=== PATIENT | female | born 1995 | race Caucasian/White ===

== ENCOUNTER 2024-03-19 14:32 | Emergency (ER) | payer OTHER ==
--- NOTE | 2024-03-19 14:50 | ED Physician Documentation ---
PD HPI HEENT - Stated complaint Stated Complaint: LT SIDE HEAD PX - Chief complaint Chief Complaint: Heent - History obtained from History obtained from: Patient - Additional information Additional information: She developed pain and tenderness of Left forehead/shinto area starting yesterday while eating. It is tender to touch. No problems with vision, rash, ear, or URI sx. No fevers. PD PAST MEDICAL HISTORY - Past Medical History Past Medical History: No Other Past Medical History: TMJ - Past Surgical History Past Surgical History: No - Present Medications Home Medications: Ambulatory Orders Medication Instructions Recorded Confirmed No Known Home Medications 03/19/24 03/19/24 - Allergies Allergies/Adverse Reactions: Allergies Allergy/AdvReac Type Severity Reaction Status Date / Time No Known Drug Allergies Allergy Verified 03/19/24 14:42 - Social History Does the pt smoke?: No Smoking Status: Never smoker Does the pt drink ETOH?: No Does the pt have substance abuse?: No - Immunizations Immunizations are current?: Yes - POLST Patient has POLST: No PD ED PE NORMAL - Vitals Vital signs reviewed: Yes - General General: Alert and oriented X 3, No acute distress - HEENT HEENT: PERRL, EOMI, Ears normal, Other (She is tender to the left shinto, above the TMJ. No TTP of TMJ itself and FROM jaw. No shingles rash.) - Neuro Neuro: Alert and oriented X 3, nc manager 2-12 intact Eye Opening: Spontaneous Motor: Obeys Commands Verbal: Oriented GCS Score: 15 Results - Vitals Vitals: Vital Signs - 24 hr 03/19/24 03/19/24 14:39 15:40 Temperature 36.9 C 36.8 C Heart Rate 69 62 Respiratory 18 14 Rate Blood Pressure 118/66 104/56 L O2 Saturation 99 100 Oxygen O2 Source Room air - Labs Labs: Laboratory Tests 03/19/24 03/19/24 03/19/24 14:55 14:55 14:55 WBC 7.3 RBC 4.58 Hgb 12.8 Hct 38.8 MCV 84.7 MCH 27.9 MCHC 33.0 RDW 13.0 Plt Count 284 MPV 9.6 Neut # (Auto) 4.1 Lymph # (Auto) 2.6 [place] # (Auto) 0.5 Eos # (Auto) 0.1 Baso # (Auto) 0.0 Absolute Nucleated RBC 0.00 Nucleated RBC % 0.0 ESR 3 Sodium 136 Potassium 4.0 Chloride 104 Carbon Dioxide 26 Anion Gap 6.0 BUN 16 Creatinine 0.7 Estimated GFR (MDRD) 100 Glucose 117 H Calcium 10.1 Total Bilirubin 0.8 AST 17 ALT 10 Alkaline Phosphatase 74 C-Reactive Protein < 0.5 Total Protein 7.8 Albumin 4.8 Globulin 3.0 Albumin/Globulin Ratio 1.6 PD Medical Decision Making - ED course ED course: She presents with left shinto pain. It could be TMJ which is what she thinks it is but it seems just a little high for that. She is very young for temporal arteritis but this was screened for with ESR and CRP which were negative. Otherwise CBC and CMP were negative. Consideration for early shingles but no rash at this juncture. Vies to follow-up with dentistry. Departure - Departure Disposition: 01 Home, Self Care Clinical Impression: Hindu tenderness Condition: Good Record reviewed to determine appropriate education?: Yes Instructions: ED TMJ Syndrome Comments: You were seen today for pain in the left shinto, it is worse with chewing and you have a history of TMJ. It certainly could be TMJ, but it seemed a little high for that for me, so we did some labs mostly to rule out inflammatory etiologies and these were negative. Your blood sugar was borderline high at 117 and this should be monitored over time by your physician but is not significantly elevated at this point. You should also follow-up with your dentist for further evaluation of potential TMJ. In the interim you can take an NSAID such as ibuprofen or Aleve for the pain. Forms: PCP List Discharge Date/Time: 03/19/24 15:41
[2024-03-19] MEDS: IBUPROFEN 400 MG TABLET PO STA (14:55)
[2024-03-19 15:00] LABS: BASOPHILS % (AUTO) 0.5 %; EOSINOPHILS # (AUTO) 0.1 10^3/uL (0.0-0.7); EOSINOPHILS % (AUTO) 1.2 %; HCT - HEMATOCRIT 38.8 % (37.0-47.0); HGB - HEMOGLOBIN 12.8 g/dL (12.0-16.0); LYMPHOCYTES # (AUTO) 2.6 10^3/uL (1.5-3.5); LYMPHOCYTES % (AUTO) 36.1 %; MEAN CORPUSCULAR HEMOGLOBIN 27.9 pg (27.0-31.0); MEAN CORPUSCULAR VOLUME 84.7 fL (81.0-99.0); MEAN PLATELET VOLUME 9.6 fL (7.9-10.8); MONOCYTES # (AUTO) 0.5 10^3/uL (0.0-1.0); MONOCYTES % (AUTO) 6.2 %; NEUTROPHILS # (AUTO) 4.1 10^3/uL (1.5-6.6); NEUTROPHILS % (AUTO) 55.7 %; PLT - PLATELET COUNT 284 10^3/uL (130-450); RED BLOOD COUNT 4.58 10^6/uL (4.20-5.40); WHITE BLOOD COUNT 7.3 x10^3/uL (4.8-10.8)
[2024-03-19 15:25] LABS: ALBUMIN 4.8 g/dL (3.2-5.5); ALBUMIN/GLOBULIN RATIO 1.6 (1.0-2.2); ALKALINE PHOSPHATASE 74 IU/L (42-121); ALT ALANINE AMINOTRANSFERASE 10 IU/L (10-60); AST ASPARTATE AMINOTRANSFERASE 17 IU/L (10-42); BILIRUBIN,TOTAL 0.8 mg/dL (0.2-1.0); BUN - BLOOD UREA NITROGEN 16 mg/dL (6-20); CALCIUM 10.1 mg/dL (8.5-10.3); CARBON DIOXIDE - CO2 26 mmol/L (21-32); CHLORIDE 104 mmol/L (101-111); CREATININE 0.7 mg/dL (0.6-1.3); CRP - C-REACTIVE PROTEIN < 0.5 mg/dL (<0.5); GFR - MDRD 100 (>89); GLUCOSE 117 mg/dL (74-104); SODIUM 136 mmol/L (135-145); TOTAL PROTEIN 7.8 g/dL (6.4-8.9)
[2024-03-19 15:46] VITALS: BP 104/56; O2SAT 100
== END 2024-03-19 15:41 | disposition home or self-care (01) ==
LOC: ED 14:32
DX: R51.9 Headache, unspecified (principal)
CPT/HCPCS: 36415; 80053; 85025; 85651; 86140; 99283; A9270

== ENCOUNTER 2024-04-21 08:00 | Outpatient (CLI) | payer OTHER ==
[2024-04-21 18:01] LABS: BILIRUBIN,URINE NEGATIVE (NEGATIVE); GLUCOSE, URINE (UA) NEGATIVE (NEGATIVE); KETONES,URINE (UA) 15 mg/dL (NEGATIVE); LEUKOCYTE ESTERASE, URINE NEGATIVE (NEGATIVE); NITRITE,URINE NEGATIVE (NEGATIVE); OCCULT BLOOD,URINE NEGATIVE (NEGATIVE); PROTEIN,URINE NEGATIVE (NEGATIVE); UROBILINOGEN,URINE 0.2 (NORMAL) E.U./dL (NORMAL)
[2024-04-21 18:28] LABS: BACTERIA,URINE Many /HPF (None Seen); CLARITY,URINE CLEAR (CLEAR); MUCUS,URINE Few Strands; RBC,URINE None Seen /HPF (0-5); SQUAMOUS EPITHELIAL CELL,UR MANY Squamous (<= Few); WBC,URINE 0-3 /HPF (0-5)
== END 2024-04-21 23:59 | disposition home or self-care (01) ==
LOC: LAB.WC 08:00
PROVIDERS: ATTEND Obstetrics & Gynecology
DX: Z34.00 Encounter for supervision of normal first pregnancy, unspecified trimester (principal)
CPT/HCPCS: 81001; 87086

== ENCOUNTER 2024-05-05 12:26 | Outpatient (CLI) | payer OTHER ==
--- NOTE | 2024-05-07 18:54 | Ultrasound Report ---
PROCEDURE: OB 1st Trimester INDICATIONS: POSITIVE TEST OUTSIDE/PRIOR DATING DATA: Last menstrual period (LMP): 03/01/2024. LMP-based estimated date of delivery (TULIO): 12/06/2024. First dating scan (date and location): 05/05/2024. Estimated date of delivery (TULIO) from first dating scan: 12/06/2024. TECHNIQUE: Real-time scanning was performed of the fetus and maternal pelvic organs with image docum entation. COMPARISON: None FINDINGS: Heart rate: 176 bpm. Embryo: Angie-rump length measures 2.5 cm corresponding to a 9 week 2 day gestation. Other: No perigestational fluid collection. Measurement variability in dating: +/- 4 weeks by LMP, +/- 7 days by mean sac diameter (use before 6 weeks gestation if crown-rump length not able to be measured), +/- 5 days by crown-rump length (6-12 weeks gestation). Maternal organs: Right-sided corpus luteum cyst IMPRESSION: Single live intrauterine consistent with 9 week 2 day gestation. Reviewed by: Anshul Clement MD on 05/07/2024 5:53 PM CECELIA Approved by: Anshul Clement MD on 05/07/2024 5:53 PM AKLAMAR Station ID: [id number]
== END 2024-05-05 12:27 | disposition home or self-care (01) ==
LOC: DI 12:26
PROVIDERS: ATTEND Obstetrics & Gynecology
DX: Z34.01 Encounter for supervision of normal first pregnancy, first trimester (principal)

== ENCOUNTER 2024-05-20 15:32 | Outpatient (CLI) | payer OTHER ==
[2024-05-20 15:51] LABS: BASOPHILS # (AUTO) 0.1 10^3/uL (0.0-0.1); BASOPHILS % (AUTO) 0.5 %; EOSINOPHILS # (AUTO) 0.1 10^3/uL (0.0-0.7); EOSINOPHILS % (AUTO) 1.1 %; HCT - HEMATOCRIT 34.2 % (37.0-47.0); HGB - HEMOGLOBIN 11.8 g/dL (12.0-16.0); LYMPHOCYTES # (AUTO) 2.4 10^3/uL (1.5-3.5); LYMPHOCYTES % (AUTO) 24.7 %; MEAN CORPUSCULAR HGB CONC 34.5 g/dL (32.0-36.0); MEAN PLATELET VOLUME 9.4 fL (7.9-10.8); MONOCYTES # (AUTO) 0.6 10^3/uL (0.0-1.0); MONOCYTES % (AUTO) 5.8 %; NEUTROPHILS # (AUTO) 6.5 10^3/uL (1.5-6.6); NEUTROPHILS % (AUTO) 67.7 %; PLT - PLATELET COUNT 280 10^3/uL (130-450); RED BLOOD COUNT 4.07 10^6/uL (4.20-5.40); RED CELL DISTRIBUTION WIDTH 12.9 % (12.0-15.0); WHITE BLOOD COUNT 9.7 x10^3/uL (4.8-10.8)
[2024-05-20 16:05] LABS: ALBUMIN 4.3 g/dL (3.2-5.5); ALBUMIN/GLOBULIN RATIO 1.7 (1.0-2.2); BILIRUBIN,TOTAL 0.7 mg/dL (0.2-1.0); CALCIUM 9.2 mg/dL (8.5-10.3); CREATININE 0.5 mg/dL (0.6-1.3); POTASSIUM 3.6 mmol/L (3.5-4.5); TOTAL PROTEIN 6.8 g/dL (6.4-8.9)
[2024-05-20 16:16] LABS: PROTEIN/CREATININE RATIO,URINE 0.1 (<=0.2)
[2024-05-20 21:40] LABS: ESTIMATED AVERAGE GLUCOSE 97 mg/dL (70-100)
[2024-05-20 23:12] LABS: CHLAMYDIA TRACHOMATIS DNA NEGATIVE (NEGATIVE); NEISSERIA GONORRHOEAE DNA NEGATIVE (NEGATIVE); TRICHOMONAS VAGINALIS DNA NEGATIVE (NEGATIVE)
[2024-05-21 01:09] LABS: HIV SCREEN 4TH GENERATION Non Reactive (Non Reactive)
[2024-05-21 03:12] LABS: HBsAG SCREEN Negative (Negative)
[2024-05-21 05:15] LABS: RPR Non Reactive (Non Reactive)
[2024-05-21 08:12] LABS: VARICELLA-ZOSTER AB IGG Reactive (Non Reactive)
[2024-05-22 00:07] LABS: HCV AB Non Reactive (Non Reactive)
== END 2024-05-20 15:33 | disposition home or self-care (01) ==
LOC: LAB 15:32
PROVIDERS: ATTEND Obstetrics & Gynecology
DX: Z34.00 Encounter for supervision of normal first pregnancy, unspecified trimester (principal); Z36.89 Encounter for other specified antenatal screening
CPT/HCPCS: 36415; 80053; 82570; 83036; 84156; 85025; 86592; 86762; 86787; 86803; 86850; 86900; 86901; 87340; 87389; 87491; 87591; 87661

== ENCOUNTER 2024-11-24 17:36 | Inpatient (IN) ==
[2024-11-24 18:35] LABS: BASOPHILS # (AUTO) 0.1 10^3/uL (0.0-0.1); BASOPHILS % (AUTO) 0.6 %; EOSINOPHILS % (AUTO) 0.2 %; HCT - HEMATOCRIT 43.4 % (37.0-47.0); HGB - HEMOGLOBIN 14.2 g/dL (12.0-16.0); LYMPHOCYTES # (AUTO) 2.6 10^3/uL (1.5-3.5); LYMPHOCYTES % (AUTO) 20.6 %; MEAN CORPUSCULAR HGB CONC 32.7 g/dL (32.0-36.0); MEAN CORPUSCULAR VOLUME 85.6 fL (81.0-99.0); MEAN PLATELET VOLUME 10.9 fL (7.9-10.8); MONOCYTES # (AUTO) 0.8 10^3/uL (0.0-1.0); MONOCYTES % (AUTO) 6.5 %; NEUTROPHILS # (AUTO) 8.9 10^3/uL (1.5-6.6); NEUTROPHILS % (AUTO) 71.5 %; PLT - PLATELET COUNT 252 10^3/uL (130-450); RED BLOOD COUNT 5.07 10^6/uL (4.20-5.40); WHITE BLOOD COUNT 12.5 x10^3/uL (4.8-10.8)
[2024-11-24 18:51] LABS: ALBUMIN 4.1 g/dL (3.2-5.5); ALBUMIN/GLOBULIN RATIO 1.3 (1.0-2.2); BILIRUBIN,TOTAL 0.8 mg/dL (0.2-1.0); CALCIUM 9.2 mg/dL (8.5-10.3); CREATININE 0.7 mg/dL (0.6-1.3); POTASSIUM 3.9 mmol/L (3.5-4.5); TOTAL PROTEIN 7.2 g/dL (6.4-8.9)
[2024-11-24 19:08] LABS: CREATININE,URINE 125.6 mg/dL; PROTEIN/CREATININE RATIO,URINE 0.9 (<=0.2)
--- NOTE | 2024-11-24 19:56 | HISTORY & PHYSICAL EXAMINATION ---
Admit History Visit Reason Visit Reason: Contractions : 1 Parity: 0 Care: positive [facility] Risk/History: positive Pre-eclampsia (Diagnosed today in triage. PCR 0.9 elevated. ) Smoking Status: Never smoker Mother's Labs Mother's Blood Type: positive O Mother's RH: positive Positive GBS: positive Group B Step Negative Rubella Status: positive Immune HPI Current : Vital Signs Temperature 36.7 C 11/24/24 17:45 Pulse Rate 82 11/24/24 17:45 Respiratory Rate 16 11/24/24 17:45 NST Procedure NST Procedure: EFM: 130s, moderate variability (min at times), positive accelerations, no decelerations Hytop: cxns q2m Results and Plan Findings/Impression: Reactive NST Elevated BP and PCR 0.9 today Plan: Admit for new diagnosis of preeclampsia Meds/Allgy Home Medications Ambulatory Orders Medication Instructions Recorded Confirmed vits no.126-ferrous fum 1 tab PO QDAY 06/18/24 11/24/24 28 mg iron-folic acid 800 mcg tablet (Classic ) Allergies Allergies Allergy/AdvReac Type Severity Reaction Status Date / Time bee venom protein (honey bee) Allergy Severe Anaphylaxis Verified 11/04/24 19:46 PFSH Active Problems All Active Problems (Updated 09/24/24 @ 11:48 by Mel Benítez CNM, [employer] DEVELOPER) Impaired glucose in , antepartum (Acute) Large for dates complicating in third trimester, antepartum (Acute) Supervision of normal first (Acute) Social History Social History (Updated 06/23/24 @ 15:03 by Noa Heard MD) Smoking Status: Never smoker Second hand tobacco smoke exposure: No Do you dip or chew tobacco?: No Do you vape?: No Living arrangement: At home Marital Status: Living Condition: With spouse/s.o. Relationship: Spouse Living Situation Details: [place] in [employer]. will deploy in Spring 2024 likely. Physical Activity: Resistance training How many days per week?: 2 Level: Independent Do you feel safe in your home environment?: Yes Suffered physical, verbal, emotional, or financial abuse?: No History of Abuse: No ETOH Use: None Substance Use: denies use Are you sexually active?: Yes Occupation: office work now Service: Yes Dates of Service: just out of [employer] Spring 2023 after 5 years. POLST Patient has POLST: No Review of Systems Status of ROS: 10 or more systems reviewed and unremarkable except as noted in history and below Physical Abdominal Exam Vital Signs: Temp Pulse Resp 36.7 C 82 16 11/24/24 17:45 11/24/24 17:45 11/24/24 17:45 Contraction Frequency (min/apart): 2 Contraction Intensity: positive Mild to moderate Uterine Resting Tone: positive Soft (Cephalic, placenta anterior, EFW 3400g) Monitoring Heart Rate Baseline: 130 Strip Review: positive Category I Presentation Presentation: positive Vertex Vaginal Exam Membranes: positive Membranes intact Dilation (in cm): 4 Effacement (%): 100 Station: positive -3 Cervical Position: positive Midposition Plan for Labor Plan For Labor I expect patient to be DC'd or transferred within 96 hours.: Yes Plan for Labor: 29yo at 38.2w by 9w US, now with new diagnosis of preeclampsia this triage visit, PCR 0.9 - Admit for preeclampsia, also she is in early labor at 4cm - Labor for now, will augment if needed - Monitor BP (now 128/74, no meds) - May have epidural - GBS negative - Anticipate Conclusion/Plan Lab Results 11/24/24 18:29 11/24/24 18:29
[2024-11-24] MEDS ORDERED: LABETALOL 20 MG/4 ML SYRINGE IVP PRN ×3 (20:03)
[2024-11-24] MEDS ORDERED: OXYTOCIN 10 UNIT/ML VIAL IM PRN (20:03)
[2024-11-24] MEDS ORDERED: TERBUTALINE 1 MG/ML VIAL SUBQ PRN (20:03)
[2024-11-24] MEDS ORDERED: hydrALAZINE INJ 20 MG/ML VIAL IVP PRN ×2 (20:03)
[2024-11-24] MEDS ORDERED: lidocaine 1% 20 ML MDV ID PRN (20:03)
[2024-11-24] MEDS ORDERED: TRANEXAMIC ACID IN NACL 1,000 MG/100 ML BAG IV PRN (20:03)
[2024-11-24] MEDS ORDERED: miSOPROStoL 200 MCG TABLET BC PRN (20:03)
[2024-11-24] MEDS ORDERED: SODIUM CHLORIDE FLUSH 0.9% 10 ML SYRINGE IVP PRN (20:03)
[2024-11-24] MEDS ORDERED: miSOPROStoL 200 MCG TABLET PR PRN (20:03)
[2024-11-24] MEDS ORDERED: LACTATED RINGERS 1,000 ML IV PRN (20:03)
[2024-11-24] MEDS ORDERED: OXYTOCIN/SODIUM CHLORIDE 500 ML IV PRN (20:03)
[2024-11-24] MEDS ORDERED: NIFEdipine 10 MG CAPSULE PO PRN (20:03)
[2024-11-24] MEDS ORDERED: LACTATED RINGERS 1,000 ML ONE (20:06)
[2024-11-24] MEDS: LACTATED RINGERS 1,000 ML IV SCH (20:11)
[2024-11-24] MEDS ORDERED: LIDOCAINE 2%-EPI 1:100000 20 ML MDV ONE (20:26)
[2024-11-24] MEDS ORDERED: ROPIVACAINE 0.2% 200 MG/100 ML BAG EP ONE (20:26)
[2024-11-24] MEDS ORDERED: ePHEDrine 50 MG/ML VIAL IVP PRN (21:33)
[2024-11-24] MEDS ORDERED: ONDANSETRON 4 MG/2 ML VIAL IVP PRN (21:33)
[2024-11-24] MEDS ORDERED: diphenhydrAMINE INJ 50 MG/ML VIAL IVP PRN (21:33)
[2024-11-24] MEDS ORDERED: NALBUPHINE 10 MG/ML AMP IVP PRN (21:33)
[2024-11-24] MEDS ORDERED: METOCLOPRAMIDE 10 MG/2 ML VIAL IVP PRN (21:33)
[2024-11-24] MEDS ORDERED: NALOXONE 0.4 MG/ML VIAL IVP PRN (21:33)
--- NOTE | 2024-11-24 21:35 | ANESTHESIA PROCEDURE NOTE ---
Pre-Anesthesia VS, & Labs Diagnosis Surgical Diagnosis:: 38.2 weeks, new dx pr-e Procedure Procedure: labor epidural Vitals Vital Signs: Temp Pulse Resp 36.7 C 82 16 11/24/24 17:45 11/24/24 17:45 11/24/24 17:45 Height (in): 4 ft 9 in Weight (kg): 62 kg Body Mass Index: 29.5 BMI Classification: Overweight NPO Last Fluid Intake: on clears now Is Patient ?: Yes Estimated Due Date:: 11/24/24 Lab Results Current Lab Results: Laboratory Tests 11/24/24 18:29: WBC 12.5 H, RBC 5.07, Hgb 14.2, Hct 43.4, MCV 85.6, MCH 28.0, MCHC 32.7, RDW 14.0, Plt Count 252, MPV 10.9 H, Neut # (Auto) 8.9 H, Lymph # (Auto) 2.6, [place] # (Auto) 0.8, Eos # (Auto) 0.0, Baso # (Auto) 0.1, Absolute Nucleated RBC 0.00, Nucleated RBC % 0.0, Sodium 135, Potassium 3.9, Chloride 102, Carbon Dioxide 24, Anion Gap 9.0, BUN 10, Creatinine 0.7, Estimated GFR (MDRD) 100, Glucose 85, Calcium 9.2, Total Bilirubin 0.8, AST 34, ALT 37, A lkaline Phosphatase 285 H, Total Protein 7.2, Albumin 4.1, Globulin 3.1, Albumin/Globulin Ratio 1.3, Blood Type O POSITIVE, Antibody Screen NEGATIVE Lab results reviewed: Yes 11/24/24 18:29 11/24/24 18:29 Meds/Allgy Home Medications Ambulatory Orders Medication Instructions Recorded Confirmed vits no.126-ferrous fum 1 tab PO QDAY 06/18/24 11/24/24 28 mg iron-folic acid 800 mcg tablet (Classic ) Allergies Allergies Allergy/AdvReac Type Severity Reaction Status Date / Time bee venom protein (honey bee) Allergy Severe Anaphylaxis Verified 11/04/24 19:46 PFSH Active Problems All Active Problems Impaired glucose in , antepartum (Acute) Large for dates complicating in third trimester, antepartum (Acute) Supervision of normal first (Acute) Social History Social History Smoking Status: Never smoker Second hand tobacco smoke exposure: No Do you dip or chew tobacco?: No Do you vape?: No Living arrangement: At home Marital Status: Living Condition: With spouse/s.o. Relationship: Spouse Living Situation Details: [place] in [place]. will deploy in Spring 2024 likely. 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 POLST Patient has POLST: No Anesthesia Exam (Expanded) Exam General: Alert and No acute distress Dental: WNL Mouth Openin Fingerbreadth Neck Mobility: Normal Mallampati classification: II Thyromental Distance: 4-6 cm Plan Plan Anesthesia Type: Epidural Consent for Procedure(s) Verified and Reviewed: Yes Code Status: Attempt Resuscitation ASA Classification ASA classification: 1-Healthy patient Is this case an emergency?: No
[2024-11-24] MEDS: SODIUM CHLORIDE FLUSH 0.9% 10 ML SYRINGE IVP SCH (21:47)
[2024-11-25] MEDS: LACTATED RINGERS 500 ML IV ONE (01:38)
[2024-11-25] MEDS: ROPIVACAINE 0.2% 200 MG/100 ML BAG EP PRN (06:15)
--- NOTE | 2024-11-25 06:55 | PROVIDER PROGRESS NOTE ---
Labor Progress Note Uterine Monitoring Uterine Monitoring Mode: positive External toco Contraction Frequency (min/apart): 2-4 Contraction Intensity: positive Moderate Uterine Resting Tone: positive Soft Monitoring Monitor Mode: positive External ultrasound Heart Rate Variability: positive Minimal (0-5 bpm) and Moderate (6-25 bmp) Accelerations: positive Present, 15x15 Decelerations: positive Early Strip Review: positive Category I (Mostly Cat 1, has had periods overnight of minimal variability and late decelerations, resolved with fluid, position changes) Vaginal Exam Dilation (in cm): 7 Effacement (%): 100 Station: -1 Cervical Position: Midposition (AROM (forebag?) 0600 CLEAR, SROM 0400 with nitrazine pos) Labor Progress Note Labor Progress Note/Additional Text: 29yo at 38.2w by 9w US, now with new diagnosis of preeclampsia on admission (PCR 0.9) - Progressed to 7cm, AROM clear 0600 - Monitor BP (now 128/74, no meds) - Comfortable with epidural - GBS negative - Mostly Cat 1, Cat 2 at times overnight with minimal variability, occasional late decelerations - Anticipate
[2024-11-25] MEDS ORDERED: LIDOCAINE-PF 2% 10 ML AMP SUBQ ONE (08:14)
--- NOTE | 2024-11-25 09:56 | PROVIDER PROGRESS NOTE ---
Subjective Prog Note Date Prog Note Date: 11/25/24 Prog Note Time: 09:15 Subjective Subjective: more comfortable with epidural but feeling pressure now. Current Medications Current Medications Current Medications: Current Medications Generic Name Dose Route Start Last Admin Trade Name Freq PRN Reason Stop Dose Admin Diphenhydramine HCl 12.5 - 25 mg 11/24/24 21:33 Diphenhydramine Inj 50 Mg/Ml Vial IVP Q6HR PRN ITCHING Ephedrine Sulfate 5 mg 11/24/24 21:33 Ephedrine 50 Mg/Ml Vial IVP Q5M PRN For SBP<100;give until SBP>100 Hydralazine HCl 5 - 10 mg 11/24/24 20:03 Hydralazine Inj 20 Mg/Ml Vial IVP Q20M PRN SBP> or= 160 OR DBP> or= 110 Protocol Hydralazine HCl 10 mg 11/24/24 20:03 Hydralazine Inj 20 Mg/Ml Vial IVP .ONCE PRN SBP> or= 160 OR DBP> or= 110 Protocol Lactated Ringer's 500 mls @ 999 mls/hr 11/24/24 20:03 Lr IV PRN PRN PER PHYSICIAN ORDER Oxytocin/Sodium Chloride 500 mls @ 999 mls/hr 11/24/24 20:03 Pitocin/Sodium Chloride IV PRN PRN POST- HEMORR PREVENTION Protocol 999 MILLIUNIT/MIN Tranexamic Acid 1,000 mg in 100 mls @ 600 mls/hr 11/24/24 20:03 Tranexamic 1,000 Mg/100ml-Nacl IV Q30M PRN EBL >1200mL and within 3hr Lactated Ringer's 1,000 mls @ 125 mls/hr 11/24/24 21:00 11/25/24 08:56 Lr IV 125 mls/hr .Q8H CHRISTAL Administration Oxytocin/Sodium Chloride 500 mls @ 1 mls/hr 11/25/24 04:00 Pitocin/Sodium Chloride IV TITR CHRISTAL Protocol 1 MILLIUNIT/MIN Ropivacaine 200 mg in 100 mls @ 0 mls/hr 11/24/24 21:33 11/25/24 06:15 Naropin 0.2% EP 6 mls/hr PRN PRN Administration PAIN Protocol Per Protocol Labetalol HCl 20 - 80 mg 11/24/24 20:03 Labetalol 20 Mg/4 Ml Syringe IVP Q10M PRN SBP> or= 160 OR DBP> or= 110 Protocol Labetalol HCl 20 mg 11/24/24 20:03 Labetalol 20 Mg/4 Ml Syringe IVP .ONCE PRN SBP> or= 160 OR DBP> or= 110 Protocol Labetalol HCl 20 - 40 mg 11/24/24 20:03 Labetalol 20 Mg/4 Ml Syringe IVP Q10M PRN SBP> or= 160 OR DBP> or= 110 Protocol Lidocaine HCl 20 ml 11/24/24 20:03 Lidocaine 1% 20 Ml Mdv ID 11/27/24 20:03 .ONCE PRN PERINEAL REPAIR Metoclopramide HCl 10 mg 11/24/24 21:33 Metoclopramide 10 Mg/2 Ml Vial IVP Q6HR PRN Nausea / Vomiting Misoprostol 600 mcg 11/24/24 20:03 Misoprostol 200 Mcg Tablet BC .ONCE PRN Hemorrhage Misoprostol 800 mcg 11/24/24 20:03 Misoprostol 200 Mcg Tablet ID .ONCE PRN Hemorrhage Nalbuphine HCl 2.5 - 5 mg 11/24/24 21:33 Nalbuphine 10 Mg/Ml Amp IVP Q4H PRN ITCHING Naloxone HCl 0.1 mg 11/24/24 21:33 Naloxone 0.4 Mg/Ml Vial IVP Q2M PRN RR<8 Nifedipine 10 - 20 mg 11/24/24 20:03 Nifedipine 10 Mg Capsule PO Q20M PRN SBP> or= 160 OR DBP> or= 110 Protocol Ondansetron HCl 4 mg 11/24/24 21:33 Ondansetron 4 Mg/2 Ml Vial IVP Q6HR PRN Nausea / Vomiting Oxytocin 10 unit 11/24/24 20:03 Oxytocin 10 Unit/Ml Vial IM .ONCE PRN Step One if no IV access. Sodium Chloride 10 ml 11/24/24 20:03 Sodium Chloride Flush 0.9% 10 Ml Syringe IVP PRN PRN NEEDED PER PROVIDER ORDERS Sodium Chloride 10 ml 11/24/24 21:00 11/25/24 06:18 Sodium Chloride Flush 0.9% 10 Ml Syringe IVP 10 ml Q8H CHRISTAL Administration Terbutaline Sulfate 0.25 mg 11/24/24 20:03 Terbutaline 1 Mg/Ml Vial SUBQ .ONCE PRN Tachystole Objective Vital Signs/Intake & Output Reviewed Vital Signs: Yes Vital Signs: bps normal Intake & Output: Intake & Output 11/22/24 11/23/24 11/24/24 11/25/24 23:59 23:59 23:59 23:59 Intake Total 183 / 183 1733 / 1733 Output Total 925 / 925 Balance 183 / 183 808 / 808 Weight (kg) 136 lb 10.986 oz Objective General Appearance: positive Other (appears exhausted, did not sleep last night. Cervix 8/+1. IUPC placed to better assess contractions. baby responded well to scalp stim. ) Lab Results 11/24/24 18:29 11/24/24 18:29 Other Labs: Lab Results x24hrs 11/24/24 11/24/24 Range/Units 18:29 18:00 WBC 12.5 H (4.8-10.8) x10^3/uL RBC 5.07 (4.20-5.40) 10^6/uL Hgb 14.2 (12.0-16.0) g/dL Hct 43.4 (37.0-47.0) % MCV 85.6 (81.0-99.0) fL MCH 28.0 (27.0-31.0) pg MCHC 32.7 (32.0-36.0) g/dL RDW 14.0 (12.0-15.0) % Plt Count 252 (130-450) 10^3/uL MPV 10.9 H (7.9-10.8) fL Neut # (Auto) 8.9 H (1.5-6.6) 10^3/uL Lymph # (Auto) 2.6 (1.5-3.5) 10^3/uL [place] # (Auto) 0.8 (0.0-1.0) 10^3/uL Eos # (Auto) 0.0 (0.0-0.7) 10^3/uL Baso # (Auto) 0.1 (0.0-0.1) 10^3/uL Absolute Nucleated RBC 0.00 x10^3/uL Nucleated RBC % 0.0 /100WBC Sodium 135 (135-145) mmol/L Potassium 3.9 (3.5-4.5) mmol/L Chloride 102 (101-111) mmol/L Carbon Dioxide 24 (21-32) mmol/L Anion Gap 9.0 (6-13) BUN 10 (6-20) mg/dL Creatinine 0.7 (0.6-1.3) mg/dL Estimated GFR (MDRD) 100 (>89) Glucose 85 (74-104) mg/dL Calcium 9.2 (8.5-10.3) mg/dL Total Bilirubin 0.8 (0.2-1.0) mg/dL AST 34 (10-42) IU/L ALT 37 (10-60) IU/L Alkaline Phosphatase 285 H (42-121) IU/L Total Protein 7.2 (6.4-8.9) g/dL Albumin 4.1 (3.2-5.5) g/dL Globulin 3.1 (2.1-4.2) g/dL Albumin/Globulin Ratio 1.3 (1.0-2.2) Urine Creatinine 125.6 mg/dL Ur Total Protein Timed 107 mg/dL Protein/Creatinin Ratio 0.9 H (<=0.2) Blood Type O POSITIVE Antibody Screen NEGATIVE Assessment/Plan Problem List (1) Normal labor: Impression: making slow progress. category 2 baby with good response to scalp stim. IUPC to assess need for pitocin. baby feels OP, patient turned to right side with peanut ball.
--- NOTE | 2024-11-25 10:41 | CONSULTATION NOTE ---
Consultation Report: Called as patient having left sided pain, 2% lidocaine bolus given via epidural, VSS q5min x20 min, relief of pain after three contractions. Epidural increased to 10cc/hr with PCEA 5cc q10min and 30cc lockout. PFSH Active Problems All Active Problems (Updated 11/25/24 @ 09:55 by Noa Heard MD) Normal labor (Acute) Impaired glucose in , antepartum (Acute) Large for dates complicating in third trimester, antepartum (Acute) Supervision of normal first (Acute) Social History Social History Smoking Status: Never smoker Second hand tobacco smoke exposure: No Do you dip or chew tobacco?: No Do you vape?: No Living arrangement: At home Marital Status: Living Condition: With spouse/s.o. Relationship: Spouse Living Situation Details: [place] in [place]. will deploy in Spring 2024 likely. 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 POLST Patient has POLST: No Conclusion/Plan Problem List (1) Normal labor: Lab Results Lab results reviewed: Yes 11/24/24 18:29 11/24/24 18:29 Meds/Allgy Home Medications Ambulatory Orders Medication Instructions Recorded Confirmed vits no.126-ferrous fum 1 tab PO QDAY 06/18/24 11/25/24 28 mg iron-folic acid 800 mcg tablet (Classic ) Allergies Allergies Allergy/AdvReac Type Severity Reaction Status Date / Time bee venom protein (honey bee) Allergy Severe Anaphylaxis Verified 11/04/24 19:46 Anesthesia Exam (Expanded) Exam Dental: WNL
[2024-11-25] MEDS: OXYTOCIN/SODIUM CHLORIDE 500 ML IV SCH (12:39)
[2024-11-25] MEDS ORDERED: SIMETHICONE CHEW 80 MG TABLET PO PRN (13:17)
[2024-11-25] MEDS ORDERED: OXYTOCIN/SODIUM CHLORIDE 500 ML IV PRN (13:17)
[2024-11-25] MEDS ORDERED: NALOXONE 0.4 MG/ML VIAL IVP PRN (13:17)
[2024-11-25] MEDS ORDERED: HYDROCORTISONE 1% CREAM 28 GM TUBE TOP PRN (13:17)
[2024-11-25] MEDS: ACETAMINOPHEN 500 MG TABLET PO PRN (13:35)
[2024-11-25] MEDS: IBUPROFEN 600 MG TABLET PO PRN (13:36)
[2024-11-25] MEDS: WITCH HAZEL/GLYCERIN 1 PAD TOP PRN (18:33)
--- NOTE | 2024-11-25 20:12 | DELIVERY NOTE ---
Delivery Note Labor Labor: positive Spontaneous and Augmented by ARM Delivery Method Delivery Method: positive Vacuum assist Presentation Presentation: positive Vertex and OA - occiput anterior Nuchal Cord Nuchal Cord: positive None Amniotic Fluid Description Amniotic Fluid Description: positive Clear, Light meconium and Other (terminal meconium) Vacuum Use Indication for Vacuum Use: positive Suspicion of immediate or potential compromise Type of Vacuum Cup: positive Cup: Mushroom Type Vacuum Extraction: positive Successful Number of pop-offs: 0 Episiotomy Type Episiotomy Type: positive None Laceration Laceration: positive 2nd degree Suture Suture Type: positive Vicryl Suture Size: positive 3-0 Delivery Outcome Delivery Date: 11/25/24 Delivery Time: 12:29 Delivery Outcome: positive Livebirth : positive Placed in direct skin contact with mother, Bulb syringe, Stimulated, Warmed and [place] used sex: positive Male Cord Cord: positive 3 vessels Placenta Placenta: positive Intact and Spontaneous Estimated Blood Loss Estimated Blood Loss (in cc): 591 Post Delivery Events Post Delivery Events: positive No post delivery events Delivery Comments (Free Text/Narrative) Delivery Comments (Free Text/Narrative): Patient presented in spontaneous labor 11/24 4 cm. Preeclampsia was diagnosed, but no severe features. She never needed medication for her bp. She progressed slowly in her labor. AROM with clear fluid. epidural. category 2 tracing most of her labor but kept making progress. In morning she was 8 cm. IUPC placed. some late decels. frequent episodes of minimal variability. Finally she progressed to complete without need for pitocin at about 10:45. She started pushing about 11:00. As the baby descended, the decels got deeper. Dr. Luna from [facility] was called to attend the . US was used to assess position and it was OA. I talked to the patient about vacuum assisted delivery due to the decels. I told her that baby may get a bruise on his head, rarely more serious bleeding. that if the vacuum did not work we would need to proceed to c section. We talked about the possibility of a shoulder dystocia and what that meant. She and her agreed to the vacuum. Once Trena was able to push the baby to +3 station, the vacuum was placed on the head and pumped up into the green zone. In between contractions, the head went back up to +2 station. The next contraction started and Trena pushed and I pulled with steady traction and was able to deliver the baby. As the baby's head came thru the vaginal opening, the perineum was supported. Once the head was delivered, shoulders came easily. Baby was put on mom's abdomen. Cord was thick but relatively short. Baby cried shortly after . He stayed on mom's belly. Cord was clamped and cut by dad at about 2 minutes. Cord blood was collected for gases and routine assessment. Placenta delivered spontaneously It was relatively small. Uterus contracted well. Oxytocin was infused in the IV. The vagina and perineum were examined and there was a second degree perineal laceration that extended up into the vagina. This was repaired with 3-0 Vicryl Plus suture, starting up at the top of the vaginal laceration, repairing the perineum in 2 layers and then getting the more superficial of the vaginal tear. She tolerated this without need for extra analgesia. Baby is a boy named Gerardo Frausto born at 12:29 weighing 6# 12 oz, 19.5 inches long. Apgars are 7/9. cord gas arterial: 7.22 with base excess of - 8.5.
[2024-11-25] MEDS: DOCUSATE SODIUM 100 MG CAPSULE PO SCH (21:06)
[2024-11-26 07:33] LABS: ALBUMIN/GLOBULIN RATIO 1.4 (1.0-2.2); BILIRUBIN,TOTAL 0.7 mg/dL (0.2-1.0); CALCIUM 8.3 mg/dL (8.5-10.3); CREATININE 0.8 mg/dL (0.6-1.3); POTASSIUM 4.3 mmol/L (3.5-4.5); TOTAL PROTEIN 5.2 g/dL (6.4-8.9)
[2024-11-26 07:36] LABS: HCT - HEMATOCRIT 31.8 % (37.0-47.0); HGB - HEMOGLOBIN 10.7 g/dL (12.0-16.0); MEAN CORPUSCULAR HGB CONC 33.6 g/dL (32.0-36.0); MEAN CORPUSCULAR VOLUME 86.2 fL (81.0-99.0); MEAN PLATELET VOLUME 10.7 fL (7.9-10.8); RED BLOOD COUNT 3.69 10^6/uL (4.20-5.40); RED CELL DISTRIBUTION WIDTH 14.2 % (12.0-15.0); WHITE BLOOD COUNT 16.5 x10^3/uL (4.8-10.8)
[2024-11-26] MEDS: PRENATAL VITAMIN TABLET PO SCH (08:04)
--- NOTE | 2024-11-26 12:54 | PROVIDER PROGRESS NOTE ---
Subjective Subjective Subjective: Subjective Patient reports she is doing well. Lochia appropriate. Denies heavy bleeding. Ambulating. Pelvic and abdominal pain well-controlled. Tolerating oral intake. Diet: Regular. Voiding without difficulty. Passing flatus. Denies BM. Patient is bonding with baby in room Breast feeding going well. Denies feeling lightheaded, dizzy or excessively fatigued. Objective General: Alert, oriented, no apparent distress. Cardiovascular: Regular rate. Regular rhythm. Lungs: No increased work of breathing. Abdomen: Uterus firm. Below umbilicus. No guarding or rebound. Extremities: No pain on palpation. No cords palpated. Distal pulses intact. Current Medications Current Medications Current Medications: Current Medications Generic Name Dose Route Start Last Admin Trade Name Freq PRN Reason Stop Dose Admin Acetaminophen 1,000 mg 11/25/24 13:17 11/25/24 13:35 Acetaminophen 500 Mg Tablet PO 1,000 mg Q8HR PRN Administration Mild Pain or Fever>38C(100.4F) Diphenhydramine HCl 12.5 - 25 mg 11/24/24 21:33 Diphenhydramine Inj 50 Mg/Ml Vial IVP Q6HR PRN ITCHING Docusate Sodium 100 mg 11/25/24 21:00 11/26/24 08:04 Docusate Sodium 100 Mg Capsule PO 100 mg BID CHRISTAL Administration Ephedrine Sulfate 5 mg 11/24/24 21:33 Ephedrine 50 Mg/Ml Vial IVP Q5M PRN For SBP<100;give until SBP>100 Hydralazine HCl 5 - 10 mg 11/24/24 20:03 Hydralazine Inj 20 Mg/Ml Vial IVP Q20M PRN SBP> or= 160 OR DBP> or= 110 Protocol Hydralazine HCl 10 mg 11/24/24 20:03 Hydralazine Inj 20 Mg/Ml Vial IVP .ONCE PRN SBP> or= 160 OR DBP> or= 110 Protocol Hydrocortisone 1 applic 11/25/24 13:17 Hydrocortisone 1% Cream 28 Gm Tube TOP QID PRN Hemorrhoids Lactated Ringer's 500 mls @ 999 mls/hr 11/24/24 20:03 Lr IV PRN PRN PER PHYSICIAN ORDER Oxytocin/Sodium Chloride 500 mls @ 999 mls/hr 11/24/24 20:03 Pitocin/Sodium Chloride IV PRN PRN POST- HEMORR PREVENTION Protocol 999 MILLIUNIT/MIN Tranexamic Acid 1,000 mg in 100 mls @ 600 mls/hr 11/24/24 20:03 Tranexamic 1,000 Mg/100ml-Nacl IV Q30M PRN EBL >1200mL and within 3hr Lactated Ringer's 1,000 mls @ 125 mls/hr 11/24/24 21:00 11/25/24 15:35 Lr IV Infused .Q8H CHRISTAL Infusion Oxytocin/Sodium Chloride 500 mls @ 1 mls/hr 11/25/24 04:00 11/25/24 15:33 Pitocin/Sodium Chloride IV Infused TITR CHRISTAL Titration Protocol 1 MILLIUNIT/MIN Ropivacaine 200 mg in 100 mls @ 0 mls/hr 11/24/24 21:33 11/25/24 12:08 Naropin 0.2% EP 10 mls/hr PRN PRN Administration PAIN Protocol Per Protocol Oxytocin/Sodium Chloride 500 mls @ 999 mls/hr 11/25/24 13:17 Pitocin/Sodium Chloride IV PRN PRN POST- HEMORR PREVENTION Protocol 999 MILLIUNIT/MIN Ibuprofen 600 mg 11/25/24 13:17 11/26/24 08:04 Ibuprofen 600 Mg Tablet PO 600 mg Q6HR PRN Administration Moderate Pain (Level 4-6) Labetalol HCl 20 - 80 mg 11/24/24 20:03 Labetalol 20 Mg/4 Ml Syringe IVP Q10M PRN SBP> or= 160 OR DBP> or= 110 Protocol Labetalol HCl 20 mg 11/24/24 20:03 Labetalol 20 Mg/4 Ml Syringe IVP .ONCE PRN SBP> or= 160 OR DBP> or= 110 Protocol Labetalol HCl 20 - 40 mg 11/24/24 20:03 Labetalol 20 Mg/4 Ml Syringe IVP Q10M PRN SBP> or= 160 OR DBP> or= 110 Protocol Lidocaine HCl 20 ml 11/24/24 20:03 Lidocaine 1% 20 Ml Mdv ID 11/27/24 20:03 .ONCE PRN PERINEAL REPAIR Metoclopramide HCl 10 mg 11/24/24 21:33 Metoclopramide 10 Mg/2 Ml Vial IVP Q6HR PRN Nausea / Vomiting Misoprostol 600 mcg 11/24/24 20:03 Misoprostol 200 Mcg Tablet BC .ONCE PRN Hemorrhage Misoprostol 800 mcg 11/24/24 20:03 Misoprostol 200 Mcg Tablet LA .ONCE PRN Hemorrhage Nalbuphine HCl 2.5 - 5 mg 11/24/24 21:33 Nalbuphine 10 Mg/Ml Amp IVP Q4H PRN ITCHING Naloxone HCl 0.1 mg 11/24/24 21:33 Naloxone 0.4 Mg/Ml Vial IVP Q2M PRN RR<8 Naloxone HCl 0.4 mg 11/25/24 13:17 Naloxone 0.4 Mg/Ml Vial IVP .ONCE PRN Opioid Overdose Nifedipine 10 - 20 mg 11/24/24 20:03 Nifedipine 10 Mg Capsule PO Q20M PRN SBP> or= 160 OR DBP> or= 110 Protocol Ondansetron HCl 4 mg 11/24/24 21:33 Ondansetron 4 Mg/2 Ml Vial IVP Q6HR PRN Nausea / Vomiting Oxytocin 10 unit 11/24/24 20:03 Oxytocin 10 Unit/Ml Vial IM .ONCE PRN Step One if no IV access. Multivit/Folic Acid/Iron 1 tab 11/26/24 08:00 11/26/24 08:04 Vitamin Tablet PO 1 tab DAILYWM CHRISTAL Administration Simethicone 80 mg 11/25/24 13:17 Simethicone Chew 80 Mg Tablet PO TID PRN Gas Sodium Chloride 10 ml 11/24/24 20:03 Sodium Chloride Flush 0.9% 10 Ml Syringe IVP PRN PRN NEEDED PER PROVIDER ORDERS Sodium Chloride 10 ml 11/24/24 21:00 11/25/24 21:19 Sodium Chloride Flush 0.9% 10 Ml Syringe IVP 10 ml Q8H CHRISTAL Administration Terbutaline Sulfate 0.25 mg 11/24/24 20:03 Terbutaline 1 Mg/Ml Vial SUBQ .ONCE PRN Tachystole Witch Liza/Glycerin 1 pad 11/25/24 13:17 11/25/24 18:33 Witch Liza/Glycerin 1 Pad TOP 1 pad PRN PRN Administration ITCHING Objective Vital Signs/Intake & Output Vital Signs: Vital Signs x48h Temp Pulse Resp BP Pulse Ox 11/26/24 08:37 36.5 C 87 16 123/80 98 Intake & Output: Intake & Output 11/23/24 11/24/24 11/25/24 11/26/24 23:59 23:59 23:59 23:59 Intake Total 183 / 183 3099 / 3099 Output Total 2350 / 2350 Balance 183 / 183 749 / 749 Weight (kg) 136 lb 10.986 oz Lab Results 11/26/24 07:15 11/26/24 07:15 Other Labs: Lab Results x24hrs 11/26/24 Range/Units 07:15 WBC 16.5 H (4.8-10.8) x10^3/uL RBC 3.69 L (4.20-5.40) 10^6/uL Hgb 10.7 L (12.0-16.0) g/dL Hct 31.8 L (37.0-47.0) % MCV 86.2 (81.0-99.0) fL MCH 29.0 (27.0-31.0) pg MCHC 33.6 (32.0-36.0) g/dL RDW 14.2 (12.0-15.0) % Plt Count 177 (130-450) 10^3/uL MPV 10.7 (7.9-10.8) fL Sodium 137 (135-145) mmol/L Potassium 4.3 (3.5-4.5) mmol/L Chloride 109 (101-111) mmol/L Carbon Dioxide 23 (21-32) mmol/L Anion Gap 5.0 L (6-13) BUN 15 (6-20) mg/dL Creatinine 0.8 (0.6-1.3) mg/dL Estimated GFR (MDRD) 85 L (>89) Glucose 74 (74-104) mg/dL Calcium 8.3 L (8.5-10.3) mg/dL Total Bilirubin 0.7 (0.2-1.0) mg/dL AST 35 (10-42) IU/L ALT 25 (10-60) IU/L Alkaline Phosphatase 170 H (42-121) IU/L Total Protein 5.2 L (6.4-8.9) g/dL Albumin 3.0 L (3.2-5.5) g/dL Globulin 2.2 (2.1-4.2) g/dL Albumin/Globulin Ratio 1.4 (1.0-2.2) Assessment/Plan Problem List (1) care and examination of lactating mother: Impression: Routine care. Encourage help with breast-feeding. Anticipate discharge tomorrow. Blood loss as expected, hemoglobin started very high at 14, now down to 10. (2) Delivery outcome of ng infant: Impression: As above Qualifiers: outcome: live Qualified Code(s): Z37.0 - Single live (3) Preeclampsia: Impression: Normal blood pressure today. No signs of worsening preeclampsia Qualifiers: Trimester: unspecified trimester Qualified Code(s): O14.90 - Unspecified pre-eclampsia, unspecified trimester
[2024-11-27 08:33] VITALS: BP 127/78; TEMP 98.2; O2SAT 100
--- NOTE | 2024-11-27 10:14 | Discharge Summary ---
Discharge Summary Admit Date: 11/24/24 Discharge Date: 11/27/24 Discharging Provider: Isaias Nicholas Code Status: Attempt Resuscitation DIAGNOSES Admission Diagnoses: 38 weeks gestation Preeclampsia without severe features Impaired glucose tolerance Discharge Diagnoses with Status of Each Condition: Same intolerance of labor Status post vacuum-assisted vaginal delivery HPI History of Present Illness: Subjective Patient reports she is doing well. Lochia appropriate. Denies heavy bleeding. Ambulating. Pelvic and abdominal pain well-controlled. Tolerating oral intake. Diet: Regular. Voiding without difficulty. Passing flatus. Denies BM. Patient is bonding with baby in room Breast feeding going well. Denies feeling lightheaded, dizzy or excessively fatigued. Objective General: Alert, oriented, no apparent distress. Cardiovascular: Regular rate. Regular rhythm. Lungs: No increased work of breathing. Abdomen: Uterus firm. Below umbilicus. No guarding or rebound. Extremities: No pain on palpation. No cords palpated. Distal pulses intact. HOSPITAL COURSE Hospital Course: Patient presented at 38 weeks gestation via triage. She was diagnosed with preeclampsia at that visit, but also was in labor and 4 cm gregg. She had an elevated protein to creatinine ratio 0.9. AROM was performed at 7 cm with clear fluid. Patient continued to contract, but IUPC was placed and oxytocin was started. Category 2 tracing and was counseled on a vacuum delivery. Vacuum extraction was uncomplicated. Baby and mom did well and were discharged on day 2. ALLERGIES Allergies Allergy/AdvReac Type Severity Reaction Status Date / Time bee venom protein (honey bee) Allergy Severe Anaphylaxis Verified 11/04/24 19:46 MEDICATIONS Ambulatory Orders Medication Instructions Recorded Confirmed vits no.[id number]-ferrous fum 1 tab PO QDAY 06/18/24 11/25/24 28 mg iron-folic acid 800 mcg tablet (Classic ) acetaminophen 500 mg tablet 1,000 mg (2 x 500 mg) PO Q8HR PRN 11/27/24 Mild Pain Or Fever>38c(100.4f) 14 days #30 tabs ibuprofen 600 mg tablet 600 mg PO Q6HR PRN Moderate Pain 11/27/24 (Level 4-6) 14 days #30 tabs PHYSICAL EXAM AT DISCHARGE Vital Signs: Vital Signs x48h Temp Pulse Resp BP Pulse Ox 11/27/24 08:00 36.8 C 78 16 127/78 100 LABS 11/26/24 07:15 11/26/24 07:15 FOLLOW UP Follow Up: With [facility] 1 week TIME SPENT Time Spent in Discharge (Minutes): 30 Discharge Plan Discharge Patient Disposition: 01 Home, Self Care Medically Cleared Date:: 11/27/24 Prescriptions: New acetaminophen 500 mg Tablet 1,000 mg PO Q8HR PRN (Reason: Mild Pain Or Fever>38c(100.4f)) 14 Days Qty: 30 0RF ibuprofen 600 mg Tablet 600 mg PO Q6HR PRN (Reason: Moderate Pain (Level 4-6)) 14 Days Qty: 30 0RF Continued Classic 28 mg iron- 800 mcg tablet 1 tab PO QDAY Activity Restrictions: Additional Comments Diet: Regular Print Language: Turkish Patient Instructions: Vaginal After, Depression
--- NOTE | 2024-11-27 12:30 | Labor Flowsheet ---
Labor Flowsheet Datetime Report Generated by CPN: 11/27/2024 12:29 Datetime: 11/27/2024 07:52 VITAL SIGNS NBP Sys/Mihaela/Mean (mmHg): 127 : 78 : 88 Pulse: 78 Datetime: 11/25/2024 13:00 Stage of : Datetime: 11/25/2024 12:46 LaborFlag: Labor Datetime: 11/25/2024 12:44 SpO2 (%): 98 Datetime: 11/25/2024 12:35 MEDICATIONS Medication Comments: Post pitocin Datetime: 11/25/2024 12:34 Stage 2 Comments: Placenta delivered Datetime: 11/25/2024 12:29 UTERINE ACTIVITY Monitor Mode: Internal Frequency (min): 2-3.5 Quality: Strong Duration (sec): 60-70 Pattern: Normal: <= 5 Contractions in 10 Minutes Resting Tone (Palpate): Relaxed Resting Tone IUP (mmHg): 10 Contraction Comments: pushing with contractions ASSESSMENT A Monitor Mode: External US FHR Baseline Rate : 160 Variability: Minimal - Undetectable to <=5 bpm Accelerations: None Decelerations: Late Category: Category II Datetime: 11/25/2024 12:28 Vacuum: On Datetime: 11/25/2024 12:27 Station Vacuum/Forceps Applied: +1 Datetime: 11/25/2024 12:21 Patient Care Comments: provider Heard strait catheter Datetime: 11/25/2024 12:10 Communication Comments: Reviewed strip with Dr. Heard, discussed option for operative deliver y and head not low enough Datetime: 11/25/2024 11:30 [place] Units (mmHg): 175 STAGE 2 Pushing Position: Pushing with Contractions Datetime: 11/25/2024 11:15 Comments: Baby off monitor through some pushes Datetime: 11/25/2024 10:47 Exam by: Dr. Heard Vaginal Exam Comments: Complete Datetime: 11/25/2024 10:31 COMMUNICATION Communication: Report Given to @ Datetime: 11/25/2024 10:15 Intensity IUP (mmHg): 50 Datetime: 11/25/2024 10:13 Patient Position/Activity: Left Tilt; Semi-Fowlers Datetime: 11/25/2024 09:17 Temperature (C): 36.5 Datetime: 11/25/2024 09:06 VAGINAL EXAM Dilatation (cm): 8.0 Station: 0 Datetime: 11/25/2024 08:49 PATIENT CARE IV/Blood Work: IV Bolus Given ml @ 250 Datetime: 11/25/2024 08:36 Anesthesia Comments: [employer] Aube left room Datetime: 11/25/2024 08:04 Notification Reason: Status Update; Status; Labor Status; Uterine Activity; Maternal Vital Si gn Change Datetime: 11/25/2024 07:57 Effacement (%): 100 Datetime: 11/25/2024 07:27 Monitor Interventions for UA: [place] Adjusted Datetime: 11/25/2024 07:00 Oxygen Method: Room Air Datetime: 11/25/2024 06:33 Membrane Comments: forebag AROM'd by Dr. [place] Datetime: 11/25/2024 05:53 Actions for Decelerations: Other Datetime: 11/25/2024 05:20 Pain Presence: Intermittent Pain Type: Contraction Pain Location: Abdomen; Back Pain Relief Measures: SPECIAL OFFICER Use; Comfort Measures Pain Assessment Comments: pt feeling ctx on her left side, pt pressed epidural SPECIAL OFFICER button Datetime: 11/25/2024 05:07 Respirations: 16 Datetime: 11/25/2024 04:42 PAIN Pain Scale: 2 Pain Goal: 2 Comfort Measures: Hot/Cold Pack Datetime: 11/25/2024 04:39 Monitor Interventions for FHR: Ultrasound Adjusted Datetime: 11/25/2024 04:12 Membrane Status: Ruptured Membranes Rupture Method: Spontaneous Amniotic Fluid Color: Clear Amniotic Fluid Amount: Small Amniotic Fluid Odor: Normal Datetime: 11/25/2024 03:59 Vaginal Bleeding: None Cervix, Consistency: Soft Cervix, Position: Midposition Datetime: 11/25/2024 01:00 Membranes Ruptured Date/Time: 11/25/2024 04:12 Datetime: 11/24/2024 21:34 I/O Interventions: Mtz Cath Inserted Datetime: 11/24/2024 21:11 Epidural Procedure: Completed Epidural Procedure Other: Pump Started Datetime: 11/24/2024 20:45 Vital Sign Comments: pt sitting up getting epidural when BP taken, RN will repeat BP Datetime: 11/24/2024 20:36 Epidural Positioning: Sitting Datetime: 11/24/2024 20:29 PROCEDURE TIME OUT Procedure Verify: Correct Patient Identity; Correct Side and Site are Marked; Accurate Procedure Co nsent Form; Agreement on Procedure to be Done; Correct Patient Position; Relevant Images and Results are Properly Labeled and Displayed; Addressed Need to Administer Antibiotics or Fluids for Irrigation ; Safety Precautions Based on Patient History or Medication Use ANESTHESIA Anesthesia Plans: Epidural Datetime: 11/24/2024 20:07 Provider Notified (Name): SMarianne Marinelli, [employer] Datetime: 11/24/2024 18:30 MATERNAL ASSESSMENT Level of Consciousness: Alert DTR's/Clonus: DTRs 3+; No Clonus Headache: Denies Nausea/Vomiting: Denies RUQ Epigastric Pain: Denies
== END 2024-11-27 12:00 | disposition home or self-care (01) | DRG 807 ==
LOC: WFO 17:36 → FBP 17:39
PROVIDERS: ADMIT Obstetrics & Gynecology; ATTEND Obstetrics & Gynecology